=== PATIENT | male | born 1995 | race Caucasian/White ===

== ENCOUNTER 2022-09-24 15:10 | Emergency (ER) | payer MEDICAID, SELFPAY ==
[2022-09-24 15:12] VITALS: BP 145/95; PULSE 76; RESP 14; TEMP 36.3; O2SAT 99; BMI 29.8
--- NOTE | 2022-09-24 15:44 | EX.ED.DYSGE1 ---
HPI History of Present Illness Chief Complaint: Dizziness Narrative Narrative: 26-year-old male who denies significant past medical history presents with lightheaded nests and dizziness that he experienced when he woke up from a nap this afternoon. He states he had gotten up earlier in the day, then gone back to sleep. When he woke up at around 130, almost 2 hours ago, he states he felt lightheaded and dizzy especially when he stood up. He vomited 4-5 times and now feels improved. He denies any prior nausea, vomiting, diarrhea, or fever or other symptoms prior to what happened this afternoon. He states he is felt lightheaded and dizzy in the past when he stood up quickly, but has not vomited. He did not have headache today, nor did he have chest pain or shortness of breath or any other symptoms. 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 PFSH [facility] Medical History no medical history Home Medications NK 09/24/22 [History Last Taken Unknown] Allergy/AdvReac Type Severity Reaction Status Date / Time No Known Allergies Allergy Verified 09/24/22 15:12 Family History no significant family his Social History Smoking Status: Current every day smoker tobacco type: cigarettes ROS ROS ED ROS Narrative Constitutional: No fever, no chills. HEENT: No sore throat. No neck pain. No loss of vision. No rhinorrhea. Cardiovascular: No chest pain. No palpitations. No pedal edema. Respiratory: No cough, no shortness of breath. Abdominal: No abdominal pain. 4-5 episodes of nausea and vomiting, currently resolved. No hematemesis. No diarrhea. Genitourinary: No dysuria. No hematuria. Musculoskeletal: No myalgias. No arthralgias. Neurologic: No headaches. Positive lightheadedness and dizziness. Skin: No rash. No change in color. Psychiatric: No depression. No anxiety. EXAM Physical Exam Narrative Exam Narrative: Afebrile. Vital signs noted. HEENT: Normocephalic. Atraumatic. PERRL, EOMI. Neck soft and supple. No point tenderness or step off. Cardiovascular: Regular rate and rhythm. No murmurs, rubs, or gallops appreciated. Respiratory: No tachypnea. Lungs clear to auscultation bilaterally. Gastrointestinal: Abdomen soft, nontender, with normoactive bowel sounds. No rebound or guarding. Neurological: Awake. Alert. Nonfocal, nonlateralizing. Skin: No rash. Normal color. No pallor. Musculoskeletal: No pedal edema. Full range of motion extremities. Const Vital Signs: 09/24/22 15:12 09/24/22 16:35 Temperature 97.3 F L Temperature Source Temporal Pulse Rate 76 Pulse Rate [Lying] 63 Pulse Rate [Sitting (for 1 minute prior to obtaining)] 61 Pulse Rate [Standing (for 1 minute prior to obtaining)] 68 Respiratory Rate 14 Blood Pressure 145/95 H Blood Pressure [Lying] 118/70 Blood Pressure [Sitting (for 1 minute prior to obtaining)] 124/81 H Blood Pressure [Standing (for 1 minute prior to obtaining)] 126/82 H Blood Pressure Mean 111 Blood Pressure Mean [Lying] 86 Blood Pressure Mean [Sitting (for 1 minute prior to obtaining)] 95 Blood Pressure Mean [Standing (for 1 minute prior to obtaining)] 96 Pulse Ox 99 Oxygen Delivery Method Room Air MDM MDM MDM Narrative Medical decision making narrative: Patient has a bottle of water with him and has been tolerating oral fluids. In the differential diagnosis is positional vertigo versus orthostatic hypotension that was transient, or combination of both. I have low suspicion for an acute coronary syndrome as he was not having chest pain and his history is not indicative of this. I do feel that him also may have more of an intra vascular fluid loss. He will be bolused normal saline and I will check a CBC and a BMP along with a urinalysis to check it for ketones and other signs of dehydration. Orthostatics will also be obtained. I reviewed his laboratory work and he has normal white count of 6.1, hemoglobin normal at 15.4, platelet count normal at 215. Electrolyte panel is grossly unremarkable with a normal sodium of 137 and a chloride of 104 with a BUN normal at 10 and creatinine 0.99. Glucose appropriately elevated at 94. I reviewed his orthostatics which are negative. There is no significant tachycardia or drop in his blood pressure. Upon repeat examination he is feeling improved. I feel he be discharged safely home with follow-up. Return instructions to the emergency department were reviewed. He was given a note to be off work today. I do not feel he requires admission or observation. Disposition is discharged home in stable condition. History & Record Review Discussion w/independent historian: Patient Additional record(s) reviewed:: Prior ED visit Lab Data Attestation: I reviewed the patient's lab results. Labs: Laboratory Results - last 24 hr 09/24/22 13:50 WBC 6.1 RBC 5.23 Hgb 15.4 Hct 45.8 MCV 87.6 MCH 29.4 MCHC 33.6 RDW Std Deviation 42.2 RDW Coeff of Brian 13.2 Plt Count 215 MPV 9.8 Immature Gran % (Auto) 0.300 Neut % (Auto) 65.1 Lymph % (Auto) 20.0 Tift % (Auto) 9.9 Eos % (Auto) 3.5 Baso % (Auto) 1.2 H Absolute Neuts (auto) 4.0 Absolute Lymphs (auto) 1.21 Nucleated RBC % 0 Sodium 137 Potassium 4.0 Chloride 104 Carbon Dioxide 27.0 Anion Gap 6 BUN 10 Creatinine 0.99 Estim Creat Clear Calc 126.67 Est GFR (MDRD) Af Amer 116 Est GFR (MDRD) Non-Af 96 BUN/Creatinine Ratio 10.1 Glucose 94 Calcium 9.2 Discharge Plan Triage Chief Complaint: Dizziness ED Provider: Krishna Ortiz Dx/Rx/DC Orders Clinical Impression: Dizziness, Near syncope, Intravascular volume depletion Instructions: ED Dehydration (Adult), ED Dizziness, Uncertain Cause, ED Near-Fainting, Uncertain Cause Prescriptions: No Action NK Stand Alone Forms: ED Work / School Excuse Primary Care Provider: Care Physician,No Primary Referrals: Monet Caruso [Non-Staff] - As Needed Care Physician,No Primary [Primary Care Provider] - Disposition Disposition: Home, Self Care
[2022-09-24 16:13] LABS: Absolute Lymphocyte Count 1.21 X10^3/uL (0.83-4.51); Basophil# 0.07 X10^3/uL; Basophil% 1.2 % (0-1); Eosinophil# 0.21 X10^3/uL; Eosinophils% 3.5 % (0-5); Hematocrit 45.8 % (40-54); Hemoglobin 15.4 g/dL (13.0-16.5); Lymphocyte # 1.21 X10^3/ul (0.83-4.51); Mean Corp Hgb Conc 33.6 g/dL (32-36); Mean Corpuscular Hgb 29.4 pg (27.0-32.0); Mean Corpuscular Volume 87.6 fL (80-94); Mean Platelet Vol. 9.8 fl (6.2-12.0); Monocyte% 9.9 % (0-10); NRBC Flagged by Analyzer 0 % (0-5); Neutrophil # 3.95 X10^3/uL (2.7-7.7); Neutrophil % 65.1 % (47-70); Platelet Count 215 K/mm3 (150-450); RBC Distribution Width CV 13.2 % (11.6-14.6); RBC Distribution Width SD 42.2 fl (35.1-43.9); Red Blood Count 5.23 M/mm3 (4.6-6.2); White Blood Count 6.1 K/mm3 (4.4-11.0)
[2022-09-24] MEDS: 0.9% Normal Saline 1,000 ML 999 ML IV (16:15)
[2022-09-24 16:30] LABS: Anion Gap 6 (5-15); BUN 10 mg/dL (7-18); BUN/Creat Ratio 10.1 RATIO (10-20); Calcium,Total 9.2 mg/dL (8.5-10.1); Chloride 104 mmol/L (98-107); Creatinine, Serum 0.99 mg/dL (0.70-1.30); EST Glomerular Filtration Rate 96 mL/min (>60); Est Glom Filt Rate - Afr Amer 116 mL/min (>60); Estimated Creatinine Clearance 126.67 ml/min; Glucose 94 mg/dL (74-106); Sodium Level 137 mmol/L (136-145)
[2022-09-24 16:35] VITALS: BP 118/70; BP 124/81; BP 126/82; PULSE 61; PULSE 63; PULSE 68
[2022-09-24 17:10] VITALS: BP 121/79; PULSE 78; RESP 16; O2SAT 99
== END 2022-09-24 17:17 | disposition home or self-care (01) ==
PROVIDERS: Emergency Provider Emergency Medicine; Visit Provider Emergency Medicine
DX: R42 Dizziness and giddiness (principal); R55 Syncope and collapse; F17.210 Nicotine dependence, cigarettes, uncomplicated; E86.9 Volume depletion, unspecified
CPT/HCPCS: 80048; 85025; 96360; 99283; J7030

== ENCOUNTER 2023-03-05 02:43 | Emergency (ER) | payer MEDICAID, SELFPAY ==
[2023-03-05 02:44] VITALS: BP 126/63; PULSE 54; RESP 16; TEMP 35.5; O2SAT 100; BMI 31.4
--- NOTE | 2023-03-05 02:53 | EDS_ITS ---
HPI History of Present Illness Chief Complaint: Fall Informant: patient and spouse/S.O. Narrative Narrative: Presents for evaluation right foot left hand injury. He was helping his friend unload tools for a box truck. He is taken outdoors coming off the ramp when he stepped off. Injury to the right foot he had a previous plate lateral foot 10 years ago from a fracture. 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 Denies anticoagulation medicines. States tetanus is in the last 5 years. Tetanus Immunization: <5 years PFSH PFSH Home Medications NK 09/24/22 [History Last Taken Unknown] Allergy/AdvReac Type Severity Reaction Status Date / Time No Known Allergies Allergy Verified 03/05/23 02:43 Surgical History (Updated 03/05/23 @ 02:44 by Carmencita Parisi) H/O foot surgery Social History Smoking Status: Current every day smoker tobacco type: cigarettes ROS ROS ED Constitutional Constitutional ED: Denies chills, fever(s) or sweats Eyes Eyes: Denies change in vision ENT ENT ED: Denies dysphagia or sore throat Cardiovascular Cardiovascular: Denies chest pain, leg edema, palpitations or racing heartbeat Respiratory/Chest Respiratory/Chest: Denies cough, dyspnea or dyspnea on exertion Gastrointestinal Gastrointestinal: Denies abdominal pain, diarrhea, nausea or vomiting Genitourinary Genitourinary ED: Denies dysuria, hematuria or urinary frequency Musculoskeletal Musculoskeletal: Reports extremity pain and other Details: Right foot injury, left hand injury ; Denies back pain or neck pain Integumentary Denies rash or wounds Neurologic Neurologic: Denies headache(s), paresthesias or weakness EXAM Physical Exam Const Vital Signs: 03/05/23 02:44 Temperature 96 F L Temperature Source Temporal Pulse Rate 54 L Respiratory Rate 16 Blood Pressure 126/63 H Blood Pressure Mean 84 Pulse Ox 100 Positive well nourished and well developed Constitutional Narrative: GCS 15. General Appearance ED: well developed and NAD HEENT Reports moist mucous membranes normocephalic and atraumatic Eyes PERRL, EOMs intact bilaterally and conjunctivae normal General Eye ED: Yes normal appearance of both eyes Neck no lymphadenopathy and supple General: Negative for tenderness Chest Wall Chest: Negative for tenderness Resp normal respiratory effort and normal air movement Effort and Inspection: symmetric chest movement; Negative for respiratory distre ss Cardio regular rate, regular rhythm and no murmurs Peripheral Pulses: pulses 2+ throughout GI normal to inspection, nondistended, normoactive bowel sounds and non-tender Palpation: Negative for guarding or rebound tenderness present Back/Spine no CVA tenderness and no thoracic nor lumbar tenderness Extremity Extremity Narrative: Right lower extremity: No knee or ankle tenderness. There is swelling lateral foot just above the fifth metatarsal, previous healed scar noted. No deformities. No midfoot tenderness. Skin intact. Right upper extremity: Noted 1.5 cm abrasion lateral aspect of the thumb. Full range of motion. Left upper extremity: No wrist or bony hand tenderness. 4 cm laceration to the hypothenar aspect, is no active bleeding. Also abrasions noted more proximal hyperthenar and thenar eminences. There is no active bleeding. No wrist tenderness. General Extremety ED: Yes tenderness; Negative for edema General Extremity: Negative for edema Neuro oriented x3 and no sensory deficits noted Sensorium / Orientation: awake and alert Skin Skin Narrative: See above MDM MDM MDM Narrative Medical decision making narrative: Interventions / MDM: Differential diagnosis: Foot contusion, hand laceration Diagnosis considered but do not suspect: Fracture however clinically no pain over concern fracture site. My EKG interpretation: N/A Imaging independently reviewed and interpreted by myself: Right foot x-ray 3 views: Bony avulsion noted at the navicular bone. There is no fracture at the proximal fifth base. External documents reviewed: N/A Test considered but not ordered:N/A ED course: Ibuprofen ordered for pain control. Reports tetanus in the last 5 years. X-ray ordered for the right foot. There is no bony tenderness of the left hand. Will have preparations for suturing of laceration to the hand. X-ray per radiology concern for acute navicular bone avulsion fracture but is no old for comparison. He is clinically not tender at this area. He had a foot fracture 10 years ago. This likely old fracture without tenderness. Follow-up given podiatry for outpatient evaluation. Postop shoe provided. Total of 7 sutures placed to his left hand. Wound care discussed. Outpatient follow-up given for PCP for suture removal. Patient will continue ibuprofen 600 mg every 6 hours as needed. All questions were answered. Procedure note: Verbal consent. Laceration repair. Normal sterile conditions. Initial wet rag used to clean his hands and the wound using warm water. 4 cc 1% lidocaine used to anesthetize the wound of the left hand. Copiously flushing with warm water performed of the wound. No gross foreign body was noted. Full range of motion of the pinky finger without difficulties. No tendon exposure was noted. Total of 6 sutures were placed across the initial wound, additional 1 suture was placed on a flap of the wound with good approximation. Bacitracin placed by myself along with a dressing. Patient tolerated the procedure well. Re-evaluation: stable Disposition discussed with patient/family/significant other: Patient and significant other Case discussed with consulting clinician: N/A This note was generated with [employer] dictation software. It may contain incorrect words, spelling, and punctuation that were not noted in checking the note before signing. Radiography Diagnostic Testing: Clinical Impression(s) from Imaging Studies Foot X-Ray 03/05/23 03:09 IMPRESSION: Findings concerning for acute dorsal navicular avulsion fracture. Electronically Signed: Macario Rojas MD at 3:42 EST Reading Location ID and State: [address] [place] [address] Tel , Service support , Discharge Plan Triage Chief Complaint: Fall ED Provider: Jean-Pierre Howe Dx/Rx/DC Orders Clinical Impression: Contusion of right foot, Laceration of hand, left Instructions: ED Foot Contusion, ED Laceration, Hand: All Closures Prescriptions: No Action NK Primary Care Provider: Care Physician,No Primary Referrals: Danie Bethea DPM [Med Staff - Active Staff] - 1-2 Weeks Primitivo Franco MD [Med Staff - Home Health Attendant] - 10-14 Days suture removal Care Physician,No Primary [Primary Care Provider] - Activity Restrictions/Additional Instructions: 7 sutures placed to left hand. Wound care as discussed. Call for follow-up with Dr. Franco in 10 to 14 days for wound check and suture removal. Foot x- ray reporting avulsion of your navicular bone on your foot however you do not have tenderness in this area. Likely an old fracture. Ambulate and weight-bear as tolerated. Continue ibuprofen up to 600 mg every 6 hours as needed for pain. Use the postop shoe. Follow-up with Dr. Bethea. Disposition Disposition: Home, Self Care
[2023-03-05] MEDS: Lidocaine 1% (20 ml mdv) 20 ML Vial INFILT (03:08)
[2023-03-05] MEDS: Ibuprofen 600 MG Tablet PO (03:09)
--- NOTE | 2023-03-05 03:09 | RAD_ITS ---
INDICATION: injury EXAMINATION/TECHNIQUE: X-RAY - RIGHT XR Foot Min 3 Views 3 VIEWS COMPARISON: No relevant prior comparison study available FINDINGS: SOFT TISSUES: No gross soft tissue swelling or subcutaneous emphysema. No radiopaque foreign body. BONES/JOINTS: Dorsal navicular fragmentation compatible with acute avulsion fracture. No other fracture lucency. Normal alignment. Preservation of the joint space.. No sclerotic or destructive changes observed. RAD/Foot min 3 Views IMPRESSION: Findings concerning for acute dorsal navicular avulsion fracture. Electronically Signed: Macario Rojas MD at 3:42 EST ,
== END 2023-03-05 04:03 | disposition home or self-care (01) ==
PROVIDERS: Emergency Provider Emergency Medicine; Visit Provider Emergency Medicine
DX: S90.31XA Contusion of right foot, initial encounter (principal); S61.412A Laceration without foreign body of left hand, initial encounter; F17.210 Nicotine dependence, cigarettes, uncomplicated; X58.XXXA Exposure to other specified factors, initial encounter
CPT/HCPCS: 12002; 73630; 99284

== ENCOUNTER 2025-02-03 15:12 | Emergency (ER) | payer MEDICAID, SELFPAY ==
[2025-02-03 15:13] VITALS: BP 144/95; PULSE 101; RESP 18; TEMP 36.6; O2SAT 98
--- NOTE | 2025-02-03 15:21 | EDS_ITS ---
HPI HPI - URI History of Present Illness Chief Complaint: Cold Sx Informant: patient Onset/Context/Timing Onset: Weeks (1) Context: Gradual Onset Timing: Continuous Quality: Burning Location: Throat Worsened by: - (Nothing) Relieved by: - (Nothing) Associated Symptoms Associated Symptoms: Positive for Nasal Congestion, Shortness of Breath, Chest Pain (Right sided chest pain) and Productive Cough; Negative for Headache, Sinus Pressure, Myalgias, Nausea, Vomiting, Diarrhea, Nonproductive cough or Hemoptysis Narrative Narrative: Patient presents with sore throat, cough, shortness of breath, and chest pain that has been getting worse over the past week. States it has gradually gotten worse. Patient states it has been constant. Patient admits to a burning sensation in his throat. Patient states he is coughing up yellow sputum. Patient admits to some pain on the right side of his chest. Patient also admits to some nasal congestion. Patient denies any fevers or chills. ROS ROS ED Constitutional Constitutional ED: Denies chills or fever(s) Eyes Eyes: Denies blurry vision or change in vision ENT ENT ED: Reports rhinorrhea and sore throat Cardiovascular Cardiovascular: Reports chest pain; Denies palpitations Respiratory/Chest Respiratory/Chest: Reports cough and dyspnea Gastrointestinal Gastrointestinal: Denies nausea or vomiting Genitourinary Genitourinary ED: Denies dysuria or hematuria Musculoskeletal Musculoskeletal: Denies back pain or neck pain Integumentary Denies abscess or rash Neurologic Neurologic: Denies headache(s) or weakness Allergic/Immunologic Allergic/Immunologic ED: Denies mouth swelling or urticaria PFSH PFSH Medical History Closed right tarsal navicular fracture Allergy/AdvReac Type Severity Reaction Status Date / Time No Known Allergies Allergy Verified 02/03/25 15:15 Surgical History H/O foot surgery Social History Smoking Status: Heavy Smoker (>10/day) alcohol intake: never EXAM Physical Exam Const Vital Signs: 02/03/25 15:13 02/03/25 16:45 02/03/25 17:13 Temperature 97.9 F Temperature Source Temporal Pulse Rate 101 H 54 L Respiratory Rate 18 Respiratory Effort Normal Respiratory Pattern Normal Blood Pressure 144/95 H 111/64 Blood Pressure Mean 111 79 Pulse Ox 98 97 Oxygen Delivery Method Room Air Room Air Positive well nourished and well developed General Appearance ED: well developed and NAD HEENT Reports moist mucous membranes normocephalic and atraumatic Throat: posterior oropharynx abnormal Positive for cobblestoning Neck supple and no JVD Resp normal respiratory effort and clear to auscultation bilaterally Cardio Rate: regular rate Rhythm: regular rhythm GI non-tender and non-distended Palpation: soft Neuro oriented x3, CN's II-XII intact bilaterally and no sensory deficits noted Sensorium / Orientation: alert Motor Exam: strength 5/5 throughout Psych mental status grossly normal MDM MDM MDM Narrative Medical decision making narrative: Differential diagnosis includes pneumonia, bronchitis, and viral illness. Chest x-ray will be obtained to assess for pneumonia or bronchitis. COVID-19, influenza, and RSV PCR will be obtained to assess for viral illness. Lab Data Lab results narrative: COVID-19 PCR was reviewed and was negative. Influenza PCR was reviewed and was negative for influenza A and influenza B. RSV PCR was reviewed and was negative. Radiography Chest X-Ray - ED: 2 View, Read by ED Physician, Read by Radiologist and No Acute Disease Diagnostic Testing: Clinical Impression(s) from Imaging Studies Chest X-Ray 02/03/25 15:37 IMPRESSION: NO ACUTE FINDINGS. Reading Location: [facility] and lateral chest x-ray was obtained. There are 2 views. On my independent interpretation, lung nick are clear. There is normal cardiac silhouette. Bony thorax is normal. There is no acute process noted. Radiologist also interpreted the x-ray and agrees. Treatment and Re-Evaluation Narrative: Patient was advised of his findings. Patient was advised that this is most likely a viral upper respiratory infection. Patient was instructed to drink plenty of fluids. Patient was instructed to take Tylenol or ibuprofen as needed for pain. Patient was instructed to follow-up with his primary care physician in 5 to 7 days. Patient was instructed to return if worse in any way. Patient understood and was agreeable with the plan. All questions were answered. Discharge Plan Triage Chief Complaint: Cold Sx ED Provider: Davidson Troncoso Dx/Rx/DC Orders Clinical Impression: Viral respiratory illness, Tobacco use disorder Instructions: ED URI, Viral, No Abx (Adult) Primary Care Provider: Care Physician,No Primary Referrals: Rachel Cristina MD [Med Staff - Business Segment Manager, Family Practice] - 5-7 Days Care Physician,No Primary [Primary Care Provider, Medical] Print Language: Nepali Disposition Disposition: Home, Self Care
--- NOTE | 2025-02-03 15:37 | RAD_ITS ---
PROCEDURE: CHEST PA AND LATERAL 02/03/2025 REASON FOR EXAM: COUGH TECHNIQUE: Procedure Code: RADCXR Modality: DX Procedure: CHEST PA AND LATERAL COMPARISON: None available. FINDINGS: Hardware: None. Heart: The heart size is normal. Mediastinum: The mediastinal contour is unremarkable. Lungs: The lungs are clear. No pneumothorax or pleural effusion. Bones: The bones are unremarkable. RAD/Chest PA and Lateral IMPRESSION: NO ACUTE FINDINGS. Reading [facility]
--- OUTSIDE RECORDS SUMMARY | 2025-02-03 15:50 | XMS RPT_ITS | CCD ---
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 mediastinum are normal. The lungs demonstrate no consolidation or atelectasis. No abnormal reticular interstitial or nodular opacities are identified. There is no evidence for calcified or noncalcified pleural plaque. The costophrenic angles are sharp. Minimal degree of scoliosis is noted. IMPRESSION: No radiographic evidence for pneumoconiosis. Please see the attached B reader form. This radiologist is a [facility] certified B reader. Report Dictated on Final Dictating Physician: MD WASHINGTON JEFFREY Signed Date and Time: 03/08/2019 1:59 pm Signed by: MD WASHINGTON JEFFREY Transcribed Date and Time: 03/08/2019 2:01 Normal [facility] ED Provider Reporton 018 Protein mass [id number] [place], [place] [address]Patient Name: YANELY VALE : [birth year]Acct #: [id number] Unit #: [id number]'s ER Arrival Date: 11/18/17 ER Physician: Ravi Neri MDI-AllergySource of InformationPATIENTTriage complaintMULTIPLE YELLOW JACKET STINGSHistory of Present Fekygcr18-[id number]-mig male patient with no prior medical history presents with multiple yellowjacketstings. He states that the stings occurred immediately prior to arrival. He notes thathe has no chest pain or shortness of breath but did vomit afterwards and is currentlynauseated. He states that he has some pain in his throat and it feels "weird" when heswallows. He has no history of allergies to bees or allergies to meds or any other insectstings.PMH: DeniesPSH: DeniesSocial history: SmokerPast Medical HistoryPast Med Hx - Otherno prior significant medical conditionPast Social HistoryTobacco UseCIGARETTESReview of SystemsReview of SystemsAllergiesCoded Allergies:BEE VENOM PROTEIN (HONEY BEE) (Severe, PER PATIENT 'YELLOW JACKETS'- TROUBLE BREATHING 11/18/17)Additional CommentsCONST:No feverNo chillsNo diaphoresisEYS/ENT:+ throat painNo nasal congestionCVS/PULM:No chest painNo shortness of breathNo coughGI/:No abdominal pain+ nausea+ vomitingNo diarrheaNo problems urinatingMS/SKIN/LYMPH:No arm painNo leg painNo neck painNo back painNo skin rashesNEURO/PSYCH:No headacheNo syncopeNo lightheadednessNo difficulty walkingNo AnxietyPhysical ExamVital SignsVital SignsVital SignsDate Time Temp Pulse Resp B/P B/P Pulse O2 O2 Flow DcT7Ygzf Ox Delivery Rate11/18 1218 50 16 133/52 99 ROOM AIR11/18 1031 36.8 65 15 141/70 100CommentsAdditionalVital signs reviewedGeneral:Appears wellVoice is nl. AlertHEENT:Head atraumaticEyes normal inspectionNormal ENT inspection, No pharyngeal edema. Mallampati II view.NECK:Normal inspectionRESPIRATORY:Normal breath sounds, no wheezes, rales, rhonchiNo chest wall tendernessNo respiratory distressCVS:Heart rate and rhythm regular, nl S1, S2No MurmursABDOMEN/GI:SoftNon-tend erBowel sounds normalBACK:Normal inspectionEXTREMITIES:Non-Tend erFull ROMNormal appearanceNEURO:Alert and orientedCN's normal as testedSensation normalMotor normalPSYCH:Mood normalAffect normalSKIN:Scattered eythematous papules c/w sting sites. no fbsNo rash, urticariaWarmDryMedical Decision MakingCourseCourse:Symptoms concerning for anaphylaxis with GI involvement and throat scratching. We willgive epi, solu-medrol, benadryl, and pepcid and observe. Patient's symptoms completelyresolved after medications. He was observed for a period of 3 hours without any reboundsymptoms and continues to remain asymptomatic. He will be discharged home with EpiPen's (advised and discussed usage), benadryl, Pepcid and steroids for 3 days. He understands heis to return if he develops any swelling of his face and upper throat or shortness ofbreath, trouble swallowing, spreading rash or any new concerns at all. PMD f/u in the next1-2 days. He voiced understanding of our recommnedaiotnsFaculty Note:CRITICAL CARE due to multiple bee stings, n,v and concern for throat "wierd" requiringmultiple parenteral rx and complex medical decision making with high potential forprogression of anaphylaxis, repeated reassessment of the pt. 45 minutes not countingproceduresMedications Ordered:Current MedicationsSig/Krystal Start time LastMedication Dose Route Stop Time Status AdminDiphenhydramine HCl 50 MG ER-STAT STA 11/18 1039 DC 11/18IV 11/18 1040 1103Epinephrine 0.3 MG ER-STAT STA 11/18 1039 DC 11/18IM 11/18 1040 1103Famotidine 20 MG ER-STAT STA 11/18 1039 DC 11/18IV 11/18 1040 1103Methylprednisolone 125 MG ER-STAT STA 11/18 1039 DC odium Succinate IV 11/18 1040 1102Sodium Chloride 1,000 ML ER-STAT STA 11/18 1039 DC 11/18IV 11/18 1238 1103Critical Care Time - excluding bifnqpavem67-47 minDisposition DecisionDischargeDisposition Date:11/18/17Decision Time:1415Resident AttestationDid you see this patient with a resident?( ) No( x ) Yes. I personally saw and examined the patient. I have reviewed and agree with theresidents findings, including all diagnostic interpretations and treatment plans aswritten unless documented otherwise in my personal note. I was present for the keyportions of any procedures performed and the inclusive time noted for any critical carestatement.DepartureClinica l ImpressionClinical ImpressionPrimary Impression:Bee sting-induced anaphylaxisQualifiers:Encounte r type:initial encounterInjury intent:accidental or unintentionalQualified Code:T63.441A - Toxic effect of venom of bees, accidental (unintentional), initial encounterSecondary Impressions:VomitingQualifiers :Vomiting Intractability:non-intractable Nausea presence:with nauseaReport Date 11/18/17Electronically Signed Esig Date Esig Myah [facility] Patrick H. MD 11/22/17 0947 Normal [facility] Vital Signs Date Time Vital Sign Value Performing Clinician Michelle coats 03-05-2023 02:44-0500 Body height 187.96 cm [facility] 03-05-2023 02:44-0500 Body mass index (BMI) [Ratio] 31.4 kg/m2 [facility] 03-05-2023 02:44-0500 Body temperature 96 [degF] [facility] 03-05-2023 02:44-0500 Body weight 111.2 kg [facility] 03-05-2023 02:44-0500 Diastolic blood pressure 63 mm[Hg] [facility] 03-05-2023 02:44-0500 Heart rate 54 /min [facility] 03-05-2023 02:44-0500 Respiratory rate 16 /min [facility] 03-05-2023 02:44-0500 SaO2% (BldA) [Mass fraction] 100 % [facility] 03-05-2023 02:44-0500 Systolic blood pressure 126 mm[Hg] [facility] 09-24-2022 17:10-0400 Diastolic blood pressure 79 mm[Hg] [facility] 09-24-2022 17:10-0400 Heart rate 78 /min [facility] 09-24-2022 17:10-0400 Respiratory rate 16 /min [facility] 09-24-2022 17:10-0400 SaO2% (BldA) [Mass fraction] 99 % [facility] 09-24-2022 17:10-0400 Systolic blood pressure 121 mm[Hg] [facility] 09-24-2022 15:12-0400 Body height 185.42 cm [facility] 09-24-2022 15:12-0400 Body mass index (BMI) [Ratio] 29.8 kg/m2 [facility] 09-24-2022 15:12-0400 Body temperature 97.3 [degF] [facility] 09-24-2022 15:12-0400 Body weight 102.51 kg [facility] Encounters Encounter Date Encounter Type Care Provider Facility Start: 01-21-2025 End: 01-21-2025 Emergency department patient visit MIGUEL ANGEL ANGELES Facility:[facility] Start: 10-30-2024 End: 10-30-2024 Patient encounter procedure Capo George [facility] Work Phone: Start: 10-30-2024 End: 10-30-2024 ambulatory No Primary Care Physician [facility] Start: 03-05-2023 End: 03-05-2023 Emergency department patient visit [facility] Work Phone: Start: 09-24-2022 End: 09-24-2022 Emergency department patient visit [facility] Work Phone: Start: 11-18-2017 Emergency department patient visit No Family Physician Facility:[facility] Procedures Date Procedure Procedure Detail Performing Clinician Start: 03-05-2023 X-ray of both feet Plan of Treatment Date Care Activity Detail Author Start: 03-05-2023 [facility] Patient Education [facility] Work Phone: Patient referral [facility] Work Phone: Payers Date Payer Category Payer Self-pay 2022 Medicaid [id number] Unknown [id number] Social History Date Type Detail Facility Start: 09-24-2022 End: 03-05-2023 Tobacco smoking status NHIS Unknown if ever smoked [facility] Start: 1995 Sex Assigned At Male W [facility] Start: 04-20-2023 Tobacco smoking stat us NJIS Smokes tobacco daily (finding) [facility] Mental Status Date Assessment Result Facility 09-24-2022 Cognitive function Level Of Cons ciousness Awake;Alert;Appropriate [facility] Work Phone: Discharge summary 09-24-2022 Note Date & Type Note Facility 09-24-2022 Discharge summary Note Date/Time September 24, 2022 3:48p m [facility] Medical Records Department [address] [place] [address] Emergency Department Summary 09/24/22 MR#: [id number] Acct: [id number] Name: YANELY ARTHUR Ervin Rep #:[id number] : 1995 26 From: Krishna Ortiz MD PCP: Care Physician,No Primary Status :REG ER Location: ED HPI History of Present Illness Chief Complaint: Dizziness Narrative Narrative: 26-year-old male who denies significant past medical history presents with lightheaded nests and dizziness that he experienced when he woke up from a nap this afternoon. He states he had gotten up earlier in the day, then gone back to sleep. When he woke up at around 130, almost 2 hours ago, he states he felt lightheaded and dizzy especially when he stood up. He vomited 4-5 times and nowfeels improved. He denies any prior nausea, vomiting, diarrhea, or fever or other symptoms prior to what happened this afternoon. He states he is felt lightheaded and dizzy in the past when he stood up quickly, but has not vomited. He did not have headache today, nor did he have chest pain or shortness of breath or any other symptoms. 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 PFSH PFS Medical History no medical history Home Medications NK 09/24/22 [History Last Taken Unknown] Allergy/AdvReac Type Severity Reaction Status Date / Time No Known Allergies Allergy Verified 09/24/22 15:12 Family History no significant family his Social History Smoking Status: Current every day smoker tobacco type: cigarettes ROS ROS ED ROS Narrative Constitutional: No fever, no chills. HEENT: No sore throat. No neck pain. No loss of vision. No rhinorrhea. Cardiovascular: No chest pain. No palpitations. No pedal edema. Respiratory: No cough, no shortness of breath. Abdominal: No abdominal pain. 4-5 episodes of nausea and vomiting, currently resolved. No hematemesis. No diarrhea. Genitourinary: No dysuria. No hematuria. Musculoskeletal: No myalgias. No arthralgias. Neurologic: No headaches. Positive lightheadedness and dizziness. Skin: No rash. No change in color. Psychiatric: No depression. No anxiety. EXAM Physical Exam Narrative Exam Narrative: Afebrile. Vital signs noted. HEENT: Normocephalic. Atraumatic. PERRL, EOMI. Neck soft and supple. No pointtenderness or step off. Cardiovascular: Regular rate and rhythm. No murmurs, rubs, or gallops appreciated. Respiratory: No tachypnea. Lungs clear to auscultation bilaterally. Gastrointestinal: Abdomen soft, nontender, with normoactive bowel sounds. No rebound or guarding. Neurological: Awake. Alert. Nonfocal, nonlateralizing. Skin: No rash. Normal color. No pallor. Musculoskeletal: No pedal edema. Full range of motion extremities. Const Vital Signs: 09/24/22 15:12 09/24/22 16:35 Temperature 97.3 F L Temperature Source Temporal Pulse Rate 76 Pulse Rate [Lying] 63 Pulse Rate [Sitting (for 1 minute prior to obtaining)] 61 Pulse Rate [Standing (for 1 minute prior to obtaining)] 68 Respiratory Rate 14 Blood Pressure 145/95 H Blood Pressure [Lying] 118/70 Blood Pressure [Sitting (for 1 minute prior to obtaining)] 124/81 H Blood Pressure [Standing (for 1 minute prior to obtaining)] 126/82 H Blood Pressure Mean 111 Blood Pressure Mean [Lying] 86 Blood Pressure Mean [Sitting (for 1 minute prior to obtaining)] 95 Blood Pressure Mean [Standing (for 1 minute prior to obtaining)] 96 Pulse Ox 99 Oxygen Delivery Method Room Air MDM MDM MDM Narrative Medical decision making narrative: Patient has a bottle of water with him and has been tolerating oral fluids. In the differential diagnosis is positional vertigo versus orthostatic hypotension that was transient, or combination of both. I have low suspicion for an acute coronary syndrome as he was not having chest pain and his history is not indicative of this. I do feel that him also may have more of an intra vascular fluid loss. He will be bolused normal saline and I will check a CBC and a BMP along with a urinalysis to check it for ketones and other signs of dehydration. Orthostatics will also be obtained. I reviewed his laboratory work and he has normal white count of 6.1, hemoglobin normal at 15.4, platelet count normal at 215. Electrolyte panel is grossly unremarkable with a normal sodium of 137 and a chloride of 104 with a BUN normalat 10 and creatinine 0.99. Glucose appropriately elevated at 94. I reviewed his orthostatics which are negative. There is no significant tachycardia or drop in his blood pressure. Upon repeat examination he is feeling improved. I feel he be discharged safely home with follow-up. Return instructions to the emergency department were reviewed. He was given a note to be off work today. I do not feel he requires admission or observation. Disposition is discharged home in stable condition. History & Record Review Discussion w/independent historian: Patient Additional record(s) reviewed:: Prior ED visit Lab Data Attestation: I reviewed the patient's lab results. Labs: Laboratory Results - last 24 hr 09/24/22 13:50 WBC 6.1 RBC 5.23 Hgb 15.4 Hct 45.8 MCV 87.6 MCH 29.4 MCHC 33.6 RDW Std Deviation 42.2 RDW Coeff of Brian 13.2 Plt Count 215 MPV 9.8 Immature Gran % (Auto) 0.300 Neut % (Auto) 65.1 Lymph % (Auto) 20.0 Eddy % (Auto) 9.9 Eos % (Auto) 3.5 Baso % (Auto) 1.2 H Absolute Neuts (auto) 4.0 Absolute Lymphs (auto) 1.21 Nucleated RBC % 0 Sodium 137 Potassium 4.0 Chloride 104 Carbon Dioxide 27.0 Anion Gap 6 BUN 10 Creatinine 0.99 Estim Creat Clear Calc 126.67 Est GFR (MDRD) Af Amer 116 Est GFR (MDRD) Non-Af 96 BUN/Creatinine Ratio 10.1 Glucose 94 Calcium 9.2 Discharge Plan Triage Chief Complaint: Dizziness ED Provider: Krishna Ortiz Dx/Rx/DC Orders Clinical Impression: Dizziness, Near syncope, Intravascular volume depletion Instructions: ED Dehydration (Adult), ED Dizziness, Uncertain Cause, ED Near-Fainting, Uncertain Cause Prescriptions: No Action NK Stand Alone Forms: ED Work / School Excuse Primary Care Provider: Care Physician,No Primary Referrals: Monet Caruso [Non-Staff] - As Needed Care Physician,No Primary [Primary Care Provider] - Disposition Disposition: Home, Self Care What to do if you have Problems For any increased pain, shortness of breath, bleeding, nausea or vomiting, chestpain, or any unexpected problems, contact your Primary Care Provider. Call [facility] ([phone]) or report to the closest Emergency Room. Call 911 if necessary. 09/24/22 0584 <Electronically signed by Krishna Ortiz MD> Cosigner Signature (if applicable): CC: No Primary Care Physician ~ Signed [facility] Work Phone: Discharge summary Note Date & Type Note Facility Discharge summary Note Date/Time March 05, 2023 2:56am [facility] Medical Records Department [address] [place] [address] Emergency Department Summary 03/05/23 MR#: [id number] Acct: [id number] Name: YANELY ARTHUR Rep #:[id number] : 1995 27 From: Jean-Pierre Salazar PCP: Care Physician,No Primary Status :REG ER Location: ED HPI History of Present Illness Chief Complaint: Fall Informant: patient and spouse/S.O. Narrative Narrative: Presents for evaluation right foot left hand injury. He was helping his friend unload tools for a box truck. He is taken outdoors coming off the ramp when he stepped off. Injury to the right foot he had a previous plate lateral foot 10 years ago from a fracture. 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 Denies anticoagulation medicines. States tetanus is in the last 5 years. Tetanus Immunization: <5 years PFSH PFS Home Medications NK 09/24/22 [History Last Taken Unknown] Allergy/AdvReac Type Severity Reaction Status Date / Time No Known Allergies Allergy Verified 03/05/23 02:43 Surgical History (Updated 03/05/23 @ 02:44 by Carmencita Parisi) H/O foot surgery Social History Smoking Status: Current every day smoker tobacco type: cigarettes ROS ROS ED Constitutional Constitutional ED: Denies chills, fever(s) or sweats Eyes Eyes: Denies change in vision ENT ENT ED: Denies dysphagia or sore throat Cardiovascular Cardiovascular: Denies chest pain, leg edema, palpitations or racing heartbeat Respiratory/Chest Respiratory/Chest: Denies cough, dyspnea or dyspnea on exertion Gastrointestinal Gastrointestinal: Denies abdominal pain, diarrhea, nausea or vomiting Genitourinary Genitourinary ED: Denies dysuria, hematuria or urinary frequency Musculoskeletal Musculoskeletal: Reports extremity pain and other Details: Right foot injury, left hand injury ; Denies back pain or neck pain Integumentary Denies rash or wounds Neurologic Neurologic: Denies headache(s), paresthesias or weakness EXAM Physical Exam Const Vital Signs: 03/05/23 02:44 Temperature 96 F L Temperature Source Temporal Pulse Rate 54 L Respiratory Rate 16 Blood Pressure 126/63 H Blood Pressure Mean 84 Pulse Ox 100 Positive well nourished and well developed Constitutional Narrative: GCS 15. General Appearance ED: well developed and NAD HEENT Reports moist mucous membranes normocephalic and atraumatic Eyes PERRL, EOMs intact bilaterally and conjunctivae normal General Eye ED: Yes normal appearance of both eyes Neck no lymphadenopathy and supple General: Negative for tenderness Chest Wall Chest: Negative for tenderness Resp normal respiratory effort and normal air movement Effort and Inspection: symmetric chest movement; Negative for respiratory distress Cardio regular rate, regular rhythm and no murmurs Peripheral Pulses: pulses 2+ throughout GI normal to inspection, nondistended, normoactive bowel sounds and non-tender Palpation: Negative for guarding or rebound tenderness present Back/Spine no CVA tenderness and no thoracic nor lumbar tenderness Extremity Extremity Narrative: Right lower extremity: No knee or ankle tenderness. There is swelling lateral foot just above the fifth metatarsal, previous healed scar noted. No deformities. No midfoot tenderness. Skin intact. Right upper extremity: Noted 1.5 cm abrasion lateral aspect of the thumb. Full range of motion. Left upper extremity: No wrist or bony hand tenderness. 4 cm laceration to the hypothenar aspect, is no active bleeding. Also abrasions noted more proximal hyperthenar and thenar eminences. There is no active bleeding. No wrist tenderness. General Extremety ED: Yes tenderness; Negative for edema General Extremity: Negative for edema Neuro oriented x3 and no sensory deficits noted Sensorium / Orientation: awake and alert Skin Skin Narrative: See above MDM MDM MDM Narrative Medical decision making narrative: Interventions / MDM: Differential diagnosis: Foot contusion, hand laceration Diagnosis considered but do not suspect: Fracture however clinically no pain over concern fracture site. My EKG interpretation: N/A Imaging independently reviewed and interpreted by myself: Right foot x-ray 3 views: Bony avulsion noted at the navicular bone. There is no fracture at the proximal fifth base. External documents reviewed: N/A Test considered but not ordered:N/A ED course: Ibuprofen ordered for pain control. Reports tetanus in the last 5 years. X-ray ordered for the right foot. There is no bony tenderness of the left hand. Will have preparations for suturing of laceration to the hand. X-ray per radiology concern for acute navicular bone avulsion fracture but is noold for comparison. He is clinically not tender at this area. He had a foot fracture 10 years ago. This likely old fracture without tenderness. Follow-up given podiatry for outpatient evaluation. Postop shoe provided. Total of 7 sutures placed to his left hand. Wound care discussed. Outpatient follow-up given for PCP for suture removal. Patient will continue ibuprofen 600mg every 6 hours as needed. All questions were answered. Procedure note: Verbal consent. Laceration repair. Normal sterile conditions. Initial wet rag used to clean his hands and the wound using warm water. 4 cc 1%lidocaine used to anesthetize the wound of the left hand. Copiously flushing with warm water performed of the wound. No gross foreign body was noted. Full range of motion of the pinky finger without difficulties. No tendon exposure was noted. Total of 6 sutures were placed across the initial wound, additional 1 suture was placed on a flap of the wound with good approximation. Bacitracin placed by myself along with a dressing. Patient tolerated the procedure well. Re-evaluation: stable Disposition discussed with patient/family/significant other: Patient and significant other Case discussed with consulting clinician: N/A This note was generated with [employer] dictation software. It may contain incorrectwords, spelling, and punctuation that were not noted in checking the note beforesigning. Radiography Diagnostic Testing: Clinical Impression(s) from Imaging Studies Foot X-Ray 03/05/23 03:09 IMPRESSION: Findings concerning for acute dorsal navicular avulsion fracture. Electronically Signed: Macario Rojas MD at 3:42 EST , Discharge Plan Triage Chief Complaint: Fall ED Provider: Jean-Pierre Howe Dx/Rx/DC Orders Clinical Impression: Contusion of right foot, Laceration of hand, left Instructions: ED Foot Contusion, ED Laceration, Hand: All Closures Prescriptions: No Action NK Primary Care Provider: Care Physician,No Primary Referrals: Danie Bethea DPM [Med Staff - Active Staff] - 1-2 Weeks Zuly Franco MD [Med Staff - [employer]] - 10-14 Days suture removal Care Physician,No Primary [Primary Care Provider] - Activity Restrictions/Additional Instructions: 7 sutures placed to left hand. Wound care as discussed. Call for follow-up with Dr. Franco in 10 to 14 days for wound check and suture removal. Foot x-ray reporting avulsion of your navicular bone on your foot however you do not have tenderness in this area. Likely an old fracture. Ambulate and weight-bearas tolerated. Continue ibuprofen up to 600 mg every 6 hours as needed for pain. Use the postop shoe. Follow-up with Dr. Bethea. Disposition Disposition: Home, Self Care What to do if you have Problems For any increased pain, shortness of breath, bleeding, nausea or vomiting, chestpain, or any unexpected problems, contact your Primary Care Provider. Call [facility] ([phone]) or report to the closest Emergency Room. Call 911 if necessary. 03/05/23 0402 <Electronically signed by Jean-Pierre Salazar> Cosigner Signature (if applicable): CC: No Primary Care Physician ~ Signed [facility] Work Phone: Evaluation note Note Date & Type Note Facility Evaluation note No assessment information availa ble [facility] Work Phone: Hospital Discharge instructions Note Date & Type Note Facility Hospital Discharge instructions Additional Instructions 7 sutures placed to left hand. Wound care as discussed. Call for follow-up with Dr. Franco in 10 to 14 days for wound check and suture removal. Foot x-ray reporting avulsion of your navicular bone on your foot however you do not have tenderness in this area. Likely an old fracture. Ambulate and weight-bear as tolerated. Continue ibuprofen up to 600 mg every 6 hours as needed for pain. Use the postop shoe. Follow-up with Dr. Bethea. [facility] Work Phone: Reason for referral (narrative) Note Date & Type Note Facility Reason for referral (narrative) No reason for referral information available [facility] Work Phone: Summary Purpose Family History No Family History Records FoundNo Family History Records FoundNo Family History Records FoundNo Family History Records FoundNo Family History Records Found Advance Directives No Advanced Directives Records Found Advance Directive Response Recorded Date/ Time Living Will No September 24, 2022 3 :51pm Power of Yarn Preparation Supervisor No September 24, 2022 3:51pm Advance Directive Response Recorded Date/ Time Living Will No March 05, 2 023 2:44am Power of Yarn Preparation Supervisor No March 05, 2023 2:44am Chief Complaint and Reason for Visit Chief Complaint DIZZY,N/V Chief Complaint fall Chief Complaint Admit Date PE/NON DOT DRUG/[place] t 2024 3:58pm Additional Source Comments (unrecognized sect ion and content) No Status Records FoundNo Status Records FoundNo Status Records FoundNo Status Records FoundNo Status Records Found INFORMATION SOURCE (unrecogn ized section and content) DATE CREATED AUTHOR 11/27/2017 [facility] DATE CREATED AUTHOR AUTHOR'S ORGANIZ ATION 03/28/2019 [facility] DATE CREATED AUTHOR AUTHOR'S ORGANIZ ATION 05/07/2021 [facility] DATE CREATED AUTHOR AUTHOR'S ORGANIZ ATION 11/12/2024 [facility] DATE CREATED AUTHOR AUTHOR'S ORGANIZ ATION 01/22/2025 [facility] Care Teams (unrecognized sec tion and content) Team Status: Active Member Role Status Dates No Primary Care Physician Primary Care Provider Active Team Status: Inactive Member Role Status Dates No Primary Care Physician Primary Care Provider Active Krishna Ortiz MD Emergency Provider Active Team Status: Inactive Member Role Status Dates No Primary Care Physician Primary Care Provider Active Dr. Jean-Pierre Howe DO Emergency Provider Active Team Status: Active Member Role/Relationship Status Dates No Primary Care Physician Primary Care Provider Active Team Status: Inactive Member Role/Relationship Status Dates No Primary Care Physician Primary Care Provider Active Start: October 30, 2024 End: October 30, 2024 No Primary Care Physician Referring Provider Active Start: October 30, 2024 End: October 30, 2024 Capo ALMODOVAR, PA Attending Provider Active Start: October 30, 2024 End: October 30, 2024 Goals (unrecognized section and content) Goals may be documented in a n alternate sectionGoals may be documented in an alternate sectionGoals may be documented in an alternate section FOR RECORDS PERTAINING TO PATIENTS WHO ARE OR HAVE BEEN ENROLLED IN A CHEMICAL DEPENDENCY/SUBSTANCEABUSE PROGRAM, SOME INFORMATION MAY BE OMITTED. This clinical summary was aggregated from multiple sources. Caution should be exercised in using it in the provision of clinical care. This summary normalizes information from multiple sources, and as a consequence, information in this document may materially change the coding, format and clinical context of patient data. In addition, data may be omitted in some cases. CLINICAL DECISIONS SHOULD BE BASED ON THE PRIMARY CLINICAL RECORDS. [facility] [facility]. provides no warranty or guarantee of the accuracy or completeness of information in this document.
[2025-02-03 16:25] VITALS: BMI 30.4
[2025-02-03 17:13] VITALS: BP 111/64; PULSE 54; O2SAT 97
[2025-02-03 17:39] VITALS: BP 111/64; PULSE 66; RESP 14; TEMP 36.6; O2SAT 98
== END 2025-02-03 17:43 | disposition home or self-care (01) ==
PROVIDERS: Emergency Provider Emergency Medicine; Visit Provider Emergency Medicine
DX: J02.9 Acute pharyngitis, unspecified (principal); F17.200 Nicotine dependence, unspecified, uncomplicated
CPT/HCPCS: 71046; 87631; 99283